=== PATIENT | male | born 1985 | race Two or more races ===

== ENCOUNTER 2024-10-09 23:18 | Emergency (ER) | payer OTHER ==
[~2024-10-09] VITALS: Ht 177.8 cm; Wt 77.1 kg
[2024-10-10 03:09] VITALS: BP 128/77; PULSE 94; RESP 17; TEMP 99; O2SAT 98
--- NOTE | 2024-10-10 03:37 | ED.PDOC ---
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 PATIENT STATES NOTICED A WOUND ON HIS LEFT THIRD TOE, DOES NOT EVELYN MBER INJURING IT. HAS NEUROPATHY. STATES PAIN RADIATES UP TO HIS THIGH, C/O BODY CHILLS ALSO. TOE IS BLOODY, OOZING. DENIES NUMBNESS, WEAKNESS, FEVER, NAUSEA, OR VOMITING. PATIENT STATES BLOOD SUGARS HAVE BEEN RUNNING AROUND 140 FASTING. Chief Complaint: Wound Check Time Seen by MD: 23:47 History of Present Illness: Nurses Notes, Medications, Allergies Allergies: Coded Allergies: NO KNOWN ALLERGIES (Unverified , 10/09/24) Home Meds Active Scripts Doxycycline Hyclate (Doxycycline Hyclate) 100 Mg Cap, 100 MG PO BID for 7 Days, #14 CAP Prov:TADEO RICHARDSON CHRIS 10/10/24 Information Source: Patient Mode of Arrival: Ambulatory Past Medical History PAST MEDICAL HISTORY: DM Surgical History: Denies all surgeries Family History Family History: Reviewed,noncontributory to illness Social History Smoker: Non-Smoker Alcohol: Denies ETOH Use Drugs: Denies Drug Use All Other Systems: Reviewed and Negative (SEE HPI) Physical Exam General Appearance: No Apparent Distress, Normal HEENT: Pharynx Normal Neck: Full Range of Motion, Non-Tender Respiratory: Lungs Clear, No Respiratory Distress, Normal Breath Sounds Cardiovascular: No Edema, No JVD, No Murmur, No Gallop, Normal Peripheral Pulses, Regular Rate/Rhythm Breast Exam: Deferred Gastrointestinal: No Organomegaly, Non Tender, No Pulsatile Mass, Normal Bowel Sounds, Soft Genitalia: Deferred Pelvic: Deferred Rectal: Deferred Extremities: Normal range of motion, No pedal edema Musculoskeletal : Location: Left Extremity Location: Toe 3 (MODERATE SOFT TISSUE EDEMA WITH NOTED SEROSANGUINEOUS DRAINAGE AND ERYTHEMA. STRENGTH SENSORY MOTION INTACT CAP REFILL LESS THAN 3 SECONDS.) Apperance: Normal Neurologic: Alert, No Motor Deficits, Normal Affect, Normal Mood, No Sensory Deficits Cerebellar Function: Normal Reflexes: Normal Skin: Dry, Normal Color, Warm Lymphatic: No Adenopathy Was a procedure done? Was a procedure done?: No Differential Diagnosis (INTG) Differential Diagnosis: Cellulitis, Contusion, Fracture, Hematoma, Laceration, Puncture Wound Differential Diagnosis: Abscess X-Ray, Labs, Meds, VS Vital Signs Date Time Temp Pulse Resp B/P (MAP) Pulse Ox O2 Delivery O2 Flow Rate FiO2 10/10/24 03:09 99.0 94 17 128/77 (94) 98 99.0 10/10/24 03:09 94 17 98 Room Air 10/09/24 23:18 98.7 109 18 152/90 98 98.7 Lab Test 10/10/24 05:35 Range/Units White Blood Count 11.2 H 4.4-10.8 10^3/uL Red Blood Count 3.73 L 4.5-5.90 10^6/uL Hemoglobin 11.2 L 13.5-17.5 g/dL Hematocrit 32.0 L 41.0-53.0 % Mean Corpuscular Volume 85.7 80.0-100.0 fL Mean Corpuscular Hemoglobin 29.9 28.0-32.0 pg Mean Corpuscular Hemoglobin Concent 34.9 32.0-36.0 g/dL Red Cell Distribution Width 14.0 11.8-14.3 % Platelet Count 251 140-450 10^3/uL Mean Platelet Volume 8.2 6.9-10.8 fL Neutrophils (%) (Auto) 72.0 37.0-80.0 % Lymphocytes (%) (Auto) 19.4 10.0-50.0 % Monocytes (%) (Auto) 7.2 0.0-12.0 % Eosinophils (%) (Auto) 1.2 0.0-7.0 % Basophils (%) (Auto) 0.2 0.0-2.0 % Neutrophils # (Auto) 8.1 1.6-8.6 10 ^3/uL Lymphocytes # (Auto) 2.2 0.4-5.4 10 ^3/uL Monocytes # (Auto) 0.8 0-1.3 10 ^3/uL Eosinophils # (Auto) 0.1 0-0.8 10 ^3/uL Basophils # (Auto) 0 0-0.2 10 ^3/uL Nucleated Red Blood Cells 0.1 % Sodium Level 137 136-145 mmol/L Potassium Level 4.2 3.5-5.1 mmol/L Chloride Level 103 98-107 mmol/L Carbon Dioxide Level 29 20-31 mmol/L Anion Gap 5 5-15 Blood Urea Nitrogen 19 9-23 mg/dL Creatinine 1.02 0.700-1.30 mg/dL Glomerular Filtration Rate Calc 97 >90 mL/min BUN/Creatinine Ratio 18.6 10.0-20.0 Serum Glucose 263 H 74-106 mg/dL Calcium Level 9.2 8.7-10.4 mg/dL Total Bilirubin 0.5 0.2-1.0 mg/dL Aspartate Amino Transferase (AST) 18 13-40 U/L Alanine Aminotransferase (ALT) 16 7-40 U/L Alkaline Phosphatase 93 46-116 U/L Total Protein 6.9 5.7-8.2 g/dL Albumin 4.2 3.2-4.8 g/dL X-Ray, Labs, Meds, VS Comment IMPRESSION: Diffuse subcutaneous soft-tissue edema most prominent around the distal 3rd digit. This may represent cellulitis. No definite focal fluid collection or abscess or secondary CT findings of acute osteomyelitis. MRI can be obtained to further evaluate if clinically indicated. PLAN: Patient given Rocephin 1 g IM. Pending CBC and CMP if findings indicate leukocytosis we will admit for IV antibiotics. With a history of type 2 diabetes on insulin with a reported A1c of nine. CBC 11.2, CMP Glucose over 200. Patient advised to follow up his glucose s liding scale. Follow up with his finisher brush medication adjustment. Advised on diet and exercise. Advised to increase p.o. fluids with electrolytes. Patient advised to follow up with his PCP in two days. Discussed ER return precautions patient indicates understanding and agrees with discharge plan of care. Time of 1ST Reevaluation: 00:30 Reevaluation 1ST: Unchanged Time of 2ND Reevaluation: 05:20 Reevaluation 2ND: Unchanged Time of 3RD Reevaluation: 06:02 Reevaluation 3RD: Improved Patient Education/Counseling: Diagnosis, Treatment, Prognosis, Need For Follow Up Family Education/Counseling: No Family Present SEPSIS Sepsis Screen Date sepsis recognized/suspect: Oct 09, 2024 Time Sepsis recognized/suspect: 2317 Recent Procedure: No On Antibiotic Therapy: No Respiratory Rate >20: No Heart Rate >90: Yes Temp<36 C (96.8 F) or >38.3 C: No SBP <90 or MAP <65 mmHG: No New Acute Mental Status Change: No Is the patient on CPAP, BIPAP,: No Physician Orders Ct L Foot Wo Contrast (10/10/24 02:27) Vital Signs Date Time Temp Pulse Resp B/P (MAP) Pulse Ox O2 Delivery O2 Flow Rate FiO2 10/10/24 03:09 99.0 94 17 128/77 (94) 98 99.0 10/10/24 03:09 94 17 98 Room Air 10/09/24 23:18 98.7 109 18 152/90 98 98.7 Laboratory Tests Test 10/10/24 05:35 White Blood Count 11.2 10^3/uL (4.4-10.8) H Departure 1 Departure Time of Disposition: 06:02 Impression: Primary Impression: Infection of toe Disposition: 01 HOME / SELF CARE / HOMELESS Condition: Stable e-Prescriptions Doxycycline Hyclate (Doxycycline Hyclate) 100 Mg Cap 100 MG PO BID for 7 Days, #14 CAP Prov: TADEO RICHARDSON 10/10/24 Discharged With: Self Critical Care Note Critical Care Time?: No Stability Stability form required: TADEO Vasquez Oct 10, 2024 03:37
--- NOTE | 2024-10-10 04:56 | DVH ---
EXAMINATION: CT CT L FOOT WO CONTRAST INDICATION: 3RD DIGIT INFECTION COMPARISON: None TECHNIQUE: CT of the left foot was performed without contrast. Volume transverse images were obtained reconstructed in multiple planes using bone and soft tissue algorithms. Radiation Dose : CTDIvol 7.8 mGy, DLP 318.39 mGy*cm. The dose indicators for CT are the volume Computed Tomography (CT) Dose Index (CTDIvol) and the Dose Length Product (DLP), and are measured in units of mGy and mGy-cm, respectively. These indicators are not patient dose, but values generated from the CT scanner acquisition factors. The report includes radiation exposure data for exposures received during this examination. FINDINGS: The alignment is normal. The joint spaces are normal. There is no fracture, dislocation, or focal osseous lesions. There are no joint effusions. Diffuse subcutaneous soft-tissue edema most prominent around the distal 3rd digit. IMPRESSION: Diffuse subcutaneous soft-tissue edema most prominent around the distal 3rd digit. This may represent cellulitis. No definite focal fluid collection or abscess or secondary CT findings of acute osteomyelitis. MRI can be obtained to further evaluate if clinically indicated.
[2024-10-10] MEDS: cefTRIAXone SOD 1,000 MG VL IM ONE (05:33)
[2024-10-10] MEDS: OXYCODONE W/ ACETAMINOPHEN 5/325MG TABLET PO ONE (05:45)
[2024-10-10 05:56] LABS: Hematocrit 32.0 % (41.0-53.0); Hemoglobin 11.2 g/dL (13.5-17.5); Mean Corpuscular Hemoglobin 29.9 pg (28.0-32.0); Mean Corpuscular Volume 85.7 fL (80.0-100.0); Nucleated Red Blood Cells % 0.1 %
[2024-10-10] MEDS ORDERED: DOXY100C4 PO (06:01)
[2024-10-10 06:29] LABS: Alanine Aminotransferase 16 U/L (7-40); Albumin 4.2 g/dL (3.2-4.8); Alkaline Phosphatase 93 U/L (46-116); Anion Gap 5 (5-15); BUN/Creatinine Ratio 18.6 (10.0-20.0); Bilirubin, Total 0.5 mg/dL (0.2-1.0); Blood Urea Nitrogen 19 mg/dL (9-23); Calcium 9.2 mg/dL (8.7-10.4); Carbon Dioxide 29 mmol/L (20-31); Chloride 103 mmol/L (98-107); Potassium 4.2 mmol/L (3.5-5.1); Sodium 137 mmol/L (136-145); Total Protein 6.9 g/dL (5.7-8.2)
[2024-10-10 06:30] LABS: Glucose 263 mg/dL (74-106)
== END 2024-10-10 06:12 | disposition home or self-care (01) ==
LOC: ER 23:18
DX: L08.89 Other specified local infections of the skin and subcutaneous tissue (principal); E11.40 Type 2 diabetes mellitus with diabetic neuropathy, unspecified; Z79.899 Other long term (current) drug therapy; Z79.4 Long term (current) use of insulin
CPT/HCPCS: 36415; 73700; 80053; 85025; 96372; 99285; J0696